=== PATIENT | male | born 1965 | race American Indian/Alaskan Native ===

== ENCOUNTER 2016-05-15 17:38 | Emergency (ER) | payer SELFPAY ==
[2016-05-15 18:26] VITALS: BP 138/86
== END 2016-05-15 20:00 | disposition left against medical advice (07) ==
LOC: ED 17:38
DX: M54.5 Low back pain (principal); R10.30 Lower abdominal pain, unspecified; Z53.21 Procedure and treatment not carried out due to patient leaving prior to being seen by health care provider

== ENCOUNTER 2016-05-17 18:41 | Emergency (ER) | payer SELFPAY ==
[2016-05-17 21:39] LABS: Bilirubin,Urine Negative (Negative); Blood,Urine Negative (Negative); Ketones,Urine Trace mg/dL (Negative); Leukocyte Esterase,Urine Negative (Negative); Nitrite,Urine Negative (Negative); Protein,Urine <15 mg/dL mg/dL (Negative); RBC,Urine < 1.0 /HPF (0.0-6.0); Urobilinogen,Urine < 2.0 mg/dL (<2.0)
[2016-05-17 21:40] LABS: Mucus,Urine Few /HPF
[2016-05-17 21:52] LABS: Basophils % (Auto) 0.5 % (0.0-1.8); Eosinophils % (Auto) 1.7 % (0.0-4.3); Hematocrit 39.2 % (35.5-45.6); Hemoglobin 12.8 gm/dl (11.8-15.2); Mean Corpuscular HGB Conc 33 % (32-34); Mean Corpuscular Hemoglobin 27 pg (28-32); Mean Corpuscular Volume 83 fl (84-94); Platelet Count 305 K/mm3 (140-440); Red Blood Count 4.71 M/mm3 (3.65-5.03); Red Cell Distribution Width 13.8 % (13.2-15.2); White Blood Count 7.9 K/mm3 (4.5-11.0)
[2016-05-17 22:06] LABS: Alanine Aminotransferase 17 units/L (7-56); Albumin 2.9 g/dL (3.9-5); Albumin/Globulin Ratio 1.2 %; Alkaline Phosphatase 56 units/L (35-129); Anion Gap 18 mmol/L; BUN/Creatinine Ratio 11.11; Bilirubin,Total 0.2 mg/dL (0.1-1.2); Blood Urea Nitrogen 10 mg/dL (9-20); Calcium 8.3 mg/dL (8.4-10.2); Carbon Dioxide 21 mmol/L (22-30); Chloride 99.6 mmol/L (98-107); Glucose 105 mg/dL (75-100); Lipase 35 units/L (13-60); Potassium 4.2 mmol/L (3.6-5.0); Sodium 134 mmol/L (137-145); Total Protein 5.3 g/dL (6.3-8.2)
[2016-05-18] MEDS ORDERED: ZOFRAN IV ONE (00:39)
[2016-05-18] MEDS ORDERED: ALUM-MAG HYDROX-SIMETH 200-200-20MG/5ML PO ONE (00:39)
[2016-05-18] MEDS ORDERED: LIDOCAINE VISCOUS 2% PO ONE (00:39)
[2016-05-18] MEDS ORDERED: NACL 0.9% 1000 ML 1,000 ML IV ONE (00:39)
[2016-05-18] MEDS ORDERED: MORPHINE IV ONE (00:39)
[2016-05-18] MEDS ORDERED: PEPCID IV ONE (00:39)
[2016-05-18] MEDS ORDERED: NACL ONE (01:13)
--- NOTE | 2016-05-18 01:19 | Emergency Department Report ---
ED Abdominal Pain HPI - General Chief Complaint: Chest Pain Stated Complaint: CHEST PAIN/LWR ABD PAIN/LWR BACK PAIN Time Seen by Provider: 05/18/16 00:24 Source: patient Mode of arrival: Ambulatory Limitations: No Limitations - History of Present Illness Initial Comments: 50-year-old male with a past medical history of intermittent abdominal pain presents to the hospital complains of abdominal chest pain. Symptoms ongoing for 2 months but worse for the last 3 days. Patient complains of pain in his chest with swallowing and he feels like he can feel the food going down his esophagus into his stomach area. Patient states he has constant lower abdominal pain radiating to the lower back described as a hot throbbing feeling. Pain rated 4/10 in intensity. There is occasional associated burning and pressure sensation in his upper abdomen and chest as well. Positive nausea with intermittent vomiting throughout the 2 months. Patient has intermittent blood in his stool as well. He denies melena, hematemesis, or fever. Patient is taking a lot of NSAIDs for pain relief. Previous medical record was reviewed patient was here May 15 but left prior to evaluation. Severity scale (0 -10): 4 - Related Data Previous Rx's Medication Instructions Recorded Last Taken Type Mag Hydrox/Al Hydrox/Simeth 20 ml PO QID PRN #1 bottle 05/18/16 Unknown Rx [Maalox Advanced Suspension] Omeprazole Magnesium [PriLOSEC Otc] 20 mg PO QDAY #30 tablet. 05/18/16 Unknown Rx Ondansetron [Zofran Odt] 4 mg PO Q8HR PRN #20 tab.rapdis 05/18/16 Unknown Rx traMADol [Ultram 50 MG tab] 50 mg PO Q6HR PRN #30 tablet 05/18/16 Unknown Rx Allergies Allergy/AdvReac Type Severity Reaction Status Date / Time No Known Allergies Allergy Verified 05/15/16 18:26 ED Review of Systems ROS: Stated complaint: CHEST PAIN/LWR ABD PAIN/LWR BACK PAIN Other details as noted in HPI Comment: All other systems reviewed and negative Other: Constitutional: No fevers chills Eyes: No eye pain visual changes ENT: No ear pain or throat pain Neck: Denies pain Respiratory: Denies cough wheezing shortness of breath Cardiovascular: Denies palpitations, syncope GI: As per HPI : Denies dysuria, urinary frequency, or urgency Musculoskeletal: Denies back pain, joint swelling Skin: Denies rash, lesions, erythema Neurologic: Denies headache, numbness, weakness Psychiatric: Denies suicidal ideation, hallucinations ED Past Medical Hx - Past Medical History Previous Medical History?: Yes Additional medical history: Gastritis - Surgical History Past Surgical History?: No - Social History Smoking Status: Unknown if ever smoked Substance Use Type: None - Medications Home Medications: Home Medications Medication Instructions Recorded Confirmed Last Taken Type Mag Hydrox/Al Hydrox/Simeth 20 ml PO QID PRN #1 bottle 05/18/16 Unknown Rx [Maalox Advanced Suspension] Omeprazole Magnesium [PriLOSEC Otc] 20 mg PO QDAY #30 tablet.dr 05/18/16 Unknown Rx Ondansetron [Zofran Odt] 4 mg PO Q8HR PRN #20 tab.rapdis 05/18/16 Unknown Rx traMADol [Ultram 50 MG tab] 50 mg PO Q6HR PRN #30 tablet 05/18/16 Unknown Rx ED Physical Exam - General Limitations: No Limitations - Other Other exam information: General: No limitations, patient is alert in no acute distress Head exam: Atraumatic, normocephalic Eyes exam: Normal appearance, nonicteric sclera ENT: Moist mucous membrane, normal oropharynx Neck exam: Normal inspection, full range of motionr Respiratory exam: Clear to auscultation bilateral, no wheezes, rales, crackles Cardiovascular: Normal rate and rhythm, normal heart sounds Abdomen: Soft, nondistended, epigastric, right upper quadrant, and right lower quadrant tenderness, with normal bowel sounds, no rebound, or guarding Extremity: Full range of motion normal inspection no deformity Back: Normal Inspection, full range of motion, no tenderness Neurologic: Alert, oriented x3, cranial nerves intact, no motor or sensory deficit Psychiatric: normal affect, normal mood Skin: Warm, dry, intact ED Course Vital Signs 05/17/16 05/17/16 05/17/16 19:30 23:14 23:31 Temperature 98.9 F Pulse Rate 102 H 93 H 86 Respiratory 18 14 18 Rate Blood Pressure 106/62 Blood Pressure 115/75 [Right] O2 Sat by Pulse 97 98 Oximetry 05/18/16 05/18/16 00:00 00:30 Temperature Pulse Rate 84 82 Respiratory 18 18 Rate Blood Pressure 103/55 103/55 Blood Pressure [Right] O2 Sat by Pulse 94 97 Oximetry - Reevaluation(s) Reevaluation #1: 05/18/16 01:19 Morphine, Zofran, Pepcid, Maalox, viscous lidocaine, and normal saline Reevaluation #2: 05/18/16 02:31 pain improved with Ed treatment. ED Medical Decision Making - Lab Data Result diagrams: 05/17/16 21:17 05/17/16 21:17 Lab Results 05/17/16 05/17/16 05/17/16 Range/Units 19:35 21:17 21:17 WBC 7.9 (4.5-11.0) K/mm3 RBC 4.71 (3.65-5.03) M/mm3 Hgb 12.8 (11.8-15.2) gm/dl Hct 39.2 (35.5-45.6) % MCV 83 L (84-94) fl MCH 27 L (28-32) pg MCHC 33 (32-34) % RDW 13.8 (13.2-15.2) % Plt Count 305 (140-440) K/mm3 Lymph % (Auto) 24.8 (13.4-35.0) % [place] % (Auto) 5.5 (0.0-7.3) % Eos % (Auto) 1.7 (0.0-4.3) % Baso % (Auto) 0.5 (0.0-1.8) % Lymph # 2.0 (1.2-5.4) K/mm3 [place] # 0.4 (0.0-0.8) K/mm3 Eos # 0.1 (0.0-0.4) K/mm3 Baso # 0.0 (0.0-0.1) K/mm3 Seg Neutrophils % 67.5 (40.0-70.0) % Seg Neutrophils # 5.3 (1.8-7.7) K/mm3 Sodium (137-145) mmol/L Potassium (3.6-5.0) mmol/L Chloride (98-107) mmol/L Carbon Dioxide (22-30) mmol/L Anion Gap mmol/L BUN (9-20) mg/dL Creatinine (0.8-1.5) mg/dL Estimated GFR ml/min BUN/Creatinine Ratio % Glucose (75-100) mg/dL Calcium (8.4-10.2) mg/dL Total Bilirubin (0.1-1.2) mg/dL AST (5-40) units/L ALT (7-56) units/L Alkaline Phosphatase (35-129) units/L Troponin T < 0.010 (0.00-0.029) ng/mL Total Protein (6.3-8.2) g/dL Albumin (3.9-5) g/dL Albumin/Globulin Ratio % Lipase (13-60) units/L Urine Color Yellow (Yellow) Urine Turbidity Clear (Clear) Urine pH 5.0 (5.0-7.0) Ur Specific [place] 1.013 (1.003-1.030) Urine Protein <15 mg/dl (Negative) mg/dL Urine Glucose (UA) Negative (Negative) mg/dL Urine Ketones Trace (Negative) mg/dL Urine Blood Negative (Negative) Urine Nitrite Negative (Negative) Urine Bilirubin Negative (Negative) Urine Urobilinogen < 2.0 (<2.0) mg/dL Ur Leukocyte Esterase Negative (Negative) Urine WBC (Auto) 1.0 (0.0-6.0) /HPF Urine RBC (Auto) < 1.0 (0.0-6.0) /HPF Urine Mucus Few /HPF 05/17/16 05/17/16 Range/Units 21:17 23:25 WBC (4.5-11.0) K/mm3 RBC (3.65-5.03) M/mm3 Hgb (11.8-15.2) gm/dl Hct (35.5-45.6) % MCV (84-94) fl MCH (28-32) pg MCHC (32-34) % RDW (13.2-15.2) % Plt Count (140-440) K/mm3 Lymph % (Auto) (13.4-35.0) % [place] % (Auto) (0.0-7.3) % Eos % (Auto) (0.0-4.3) % Baso % (Auto) (0.0-1.8) % Lymph # (1.2-5.4) K/mm3 [place] # (0.0-0.8) K/mm3 Eos # (0.0-0.4) K/mm3 Baso # (0.0-0.1) K/mm3 Seg Neutrophils % (40.0-70.0) % Seg Neutrophils # (1.8-7.7) K/mm3 Sodium 134 L (137-145) mmol/L Potassium 4.2 (3.6-5.0) mmol/L Chloride 99.6 (98-107) mmol/L Carbon Dioxide 21 L (22-30) mmol/L Anion Gap 18 mmol/L BUN 10 (9-20) mg/dL Creatinine 0.9 (0.8-1.5) mg/dL Estimated GFR > 60 ml/min BUN/Creatinine Ratio 11.11 % Glucose 105 H (75-100) mg/dL Calcium 8.3 L (8.4-10.2) mg/dL Total Bilirubin 0.2 (0.1-1.2) mg/dL AST 19 (5-40) units/L ALT 17 (7-56) units/L Alkaline Phosphatase 56 (35-129) units/L Troponin T < 0.010 (0.00-0.029) ng/mL Total Protein 5.3 L (6.3-8.2) g/dL Albumin 2.9 L (3.9-5) g/dL Albumin/Globulin Ratio 1.2 % Lipase 35 (13-60) units/L Urine Color (Yellow) Urine Turbidity (Clear) Urine pH (5.0-7.0) Ur Specific [place] (1.003-1.030) Urine Protein (Negative) mg/dL Urine Glucose (UA) (Negative) mg/dL Urine Ketones (Negative) mg/dL Urine Blood (Negative) Urine Nitrite (Negative) Urine Bilirubin (Negative) Urine Urobilinogen (<2.0) mg/dL Ur Leukocyte Esterase (Negative) Urine WBC (Auto) (0.0-6.0) /HPF Urine RBC (Auto) (0.0-6.0) /HPF Urine Mucus /HPF - Radiology Data Radiology results: report reviewed CT abdomen and pelvis IV contrast: 3 mm nonobstructive stone right. No obstructive uropathy. No gross inflammatory changes in the renal collecting system. No calcified gallstones or biliary dilatation. Homogeneous effacement of the liver, spleen, and pancreas. Moderate stool in the colon. Large and small bowel loops normal. Appendix normal. No inflammatory changes. 9 mm indeterminate right adrenal nodule - Medical Decision Making Labs and CT did not reveal any significant abnormality. Pain is chronic and ongoing. Guaiac-positive stool but normal H&H. Pt will be placed on PPI, nausea medication, Maalox, and instructed not to take NSAIDs or aspirin. Tramadol will be prescribed instead. GI follow-up will be encouraged for endoscopy - Differential Diagnosis gastritis, cholelithiasis, diverticulitis, appendicitis, GERD, PUD Critical Care Time: No Critical care attestation.: If time is entered above; I have spent that time in minutes in the direct care of this critically ill patient, excluding procedure time. ED Disposition Clinical Impression: Gastritis, Abdominal pain, GERD (gastroesophageal reflux disease), Right kidney stone Disposition: DISCHARGED TO HOME OR SELFCARE Is pt being admited?: No Does the pt Need Aspirin: No Condition: Stable Instructions: Gastritis (ED), Abdominal Pain (ED), Gastroesophageal Reflux Disease (ED), Kidney Stones (ED) Additional Instructions: Take the medication as prescribed. Return if symptoms worsen. Avoid taking NSAIDs and aspirin because they may cause increase stomach irritation. Prescriptions: Mag Hydrox/Al Hydrox/Simeth [Maalox Advanced Suspension] 20 ml PO QID PRN #1 bottle PRN Reason: Indigestion Omeprazole Magnesium [PriLOSEC Otc] 20 mg PO QDAY #30 tablet. Ondansetron [Zofran Odt] 4 mg PO Q8HR PRN #20 tab.rapdis PRN Reason: Nausea And Vomiting traMADol [Ultram 50 MG tab] 50 mg PO Q6HR PRN #30 tablet PRN Reason: Pain Referrals: REJI RIDLEY MD [Staff Physician] - 3-5 Days [facility] [Provider Group] - 3-5 Days Time of Disposition: 02:32
--- NOTE | 2016-05-18 01:26 | Cat Scan Report ---
FINAL REPORT EXAM: CT ABDOMEN PELVIS W CON HISTORY: ruq, rlq pain, vomiting, blood in stool COMPARISON: None available. TECHNIQUE: Contiguous axial images were obtained. Additional sagittal and coronal reformatted images were obtained. Administration of IV contrast given per institution protocol. Images submitted for interpretation. FINDINGS: Mild linear scarring or atelectasis in the lingula. Calcified granuloma right lower lobe. No calcified gallstones or biliary dilatation. Homogeneous enhancement of the liver, spleen, pancreas. Indeterminate right adrenal nodule measuring 9 x 6 millimeters. Left adrenal gland is unremarkable. No solid renal lesion. No hydronephrosis. 3 millimeter nonobstructive right renal calculus. Aorta and IVC normal in caliber. Urinary bladder and prostate gland are grossly unremarkable. No free fluid or pathologic lymphadenopathy. The appendix is normal in caliber. Moderate stool in the colon. Large and small bowel loops normal in caliber. Lumbar vertebral body heights are preserved. Mild to moderate degenerative changes of lumbar spine. Bony pelvis is grossly intact. IMPRESSION: 3 millimeter nonobstructive calculus. No obstructive uropathy. No gross inflammatory changes the renal collecting system. Moderate stool in the colon. Large and small bowel loops are normal in caliber. The appendix is normal in caliber measuring 5-6 millimeters in diameter. No adjacent fat stranding or fluid to suggest active inflammation the appendix at this time by CT. 9 millimeter indeterminate right adrenal nodule. Statistically this likely reflects an adenoma. No other gross acute findings.
[2016-05-18 02:43] VITALS: BP 121/81
== END 2016-05-18 02:45 | disposition home or self-care (01) ==
LOC: ED 18:41
DX: K29.70 Gastritis, unspecified, without bleeding (principal); K21.9 Gastro-esophageal reflux disease without esophagitis; N20.0 Calculus of kidney
CPT/HCPCS: 36415; 74177; 80053; 81001; 82271; 83690; 84484; 85025; 93005; 93010; 96361; 96374; 96375; 99285; J2270; J2405; J7030; Q9967

== ENCOUNTER 2016-07-01 20:13 | Emergency (ER) | payer SELFPAY ==
[2016-07-01 20:57] LABS: Basophils % (Auto) 0.7 % (0.0-1.8); Eosinophils % (Auto) 3.7 % (0.0-4.3); Hematocrit 38.7 % (35.5-45.6); Hemoglobin 12.9 gm/dl (11.8-15.2); Mean Corpuscular HGB Conc 33 % (32-34); Mean Corpuscular Hemoglobin 27 pg (28-32); Mean Corpuscular Volume 82 fl (84-94); Platelet Count 309 K/mm3 (140-440); Red Blood Count 4.74 M/mm3 (3.65-5.03); White Blood Count 7.7 K/mm3 (4.5-11.0)
[2016-07-01 21:03] LABS: Urine Drugs of Abuse Note Disclamer
[2016-07-01 21:12] LABS: Alanine Aminotransferase 16 units/L (7-56); Albumin 3.7 g/dL (3.9-5); Albumin/Globulin Ratio 1.9 %; Anion Gap 20 mmol/L; Blood Urea Nitrogen 11 mg/dL (9-20); Calcium 8.8 mg/dL (8.4-10.2); Carbon Dioxide 22 mmol/L (22-30); Chloride 102.3 mmol/L (98-107); Glucose 97 mg/dL (75-100); Lipase 117 units/L (13-60); Potassium 4.1 mmol/L (3.6-5.0); Sodium 140 mmol/L (137-145); Total Protein 5.7 g/dL (6.3-8.2)
[2016-07-01 21:18] LABS: Bilirubin,Urine NEG (Negative); Blood,Urine NEG (Negative); Ketones,Urine TR mg/dL (Negative); Leukocyte Esterase,Urine NEG (Negative); Mucus,Urine FEW /HPF; Nitrite,Urine NEG (Negative); Urobilinogen,Urine < 2.0 mg/dL (<2.0)
[2016-07-01 21:32] LABS: Alkaline Phosphatase 69 units/L (35-129)
[2016-07-02] MEDS ORDERED: PERCOCET 5/325 PO ONE (00:28)
[2016-07-02] MEDS ORDERED: ALUM-MAG HYDROX-SIMETH 200-200-20MG/5ML PO ONE (00:29)
[2016-07-02] MEDS ORDERED: LIDOCAINE VISCOUS 2% PO ONE (00:29)
--- NOTE | 2016-07-02 00:30 | Emergency Department Report ---
ED N/V/D HPI - General Chief complaint: Abdominal Pain Stated complaint: CHEST PAIN/LEG TINGLING Time Seen by Provider: 07/02/16 00:15 Source: patient, family Mode of arrival: Ambulatory Limitations: No Limitations - History of Present Illness Initial comments: This is a gentleman who describes several day history of epigastric discomfort. He has been told in the past that he could have peptic ulcer disease. Last time he was here he is actually given a prescription for omeprazole as well as several other medications he did not fill the prescription for omeprazole due to cost. He states he tries to relatively careful with his diet. He does drink alcohol however and he does use aspirin in excess. He also endorses some burning sensation from his stomach up into his chest. Patient is also reporting difficulty with urination. He states difficulty initiating a stream and emptying his bladder. In addition he states when he is urinating he feels discomfort extending to his testicles. He denies any testicular enlargement. He denies any testicular tenderness to palpation. Location: epigastric Quality: other (burning) Improves with: none - Related Data Previous Rx's Medication Instructions Recorded Last Taken Type Mag Hydrox/Al Hydrox/Simeth 20 ml PO QID PRN #1 bottle 05/18/16 Unknown Rx [Maalox Advanced Suspension] Omeprazole Magnesium [PriLOSEC Otc] 20 mg PO QDAY #30 tablet. 05/18/16 Unknown Rx Ondansetron [Zofran Odt] 4 mg PO Q8HR PRN #20 tab.rapdis 05/18/16 Unknown Rx traMADol [Ultram 50 MG tab] 50 mg PO Q6HR PRN #30 tablet 05/18/16 Unknown Rx Omeprazole Magnesium [PriLOSEC Otc] 20 mg PO QDAY #30 tablet. 07/02/16 Unknown Rx Tamsulosin [Flomax] 0.4 mg PO QDAY #30 cap 07/02/16 Unknown Rx Allergies Allergy/AdvReac Type Severity Reaction Status Date / Time No Known Allergies Allergy Verified 05/15/16 18:26 ED Review of Systems ROS: Stated complaint: CHEST PAIN/LEG TINGLING Other details as noted in HPI Comment: All other systems reviewed and negative Constitutional: denies: chills, fever Eyes: denies: eye pain, eye discharge, vision change ENT: denies: ear pain, throat pain Respiratory: denies: cough, shortness of breath, wheezing Cardiovascular: denies: chest pain, palpitations Endocrine: no symptoms reported Gastrointestinal: abdominal pain, nausea. denies: diarrhea Genitourinary: dysuria. denies: urgency Musculoskeletal: denies: back pain, joint swelling, arthralgia Skin: denies: rash, lesions Neurological: denies: headache, weakness, paresthesias Psychiatric: denies: anxiety, depression Hematological/Lymphatic: denies: easy bleeding, easy bruising ED Past Medical Hx - Past Medical History Previous Medical History?: No Additional medical history: Gastritis - Surgical History Past Surgical History?: No - Social History Smoking Status: Current Every Day Smoker Substance Use Type: Alcohol - Medications Home Medications: Home Medications Medication Instructions Recorded Confirmed Last Taken Type Mag Hydrox/Al Hydrox/Simeth 20 ml PO QID PRN #1 bottle 05/18/16 Unknown Rx [Maalox Advanced Suspension] Omeprazole Magnesium [PriLOSEC Otc] 20 mg PO QDAY #30 tablet. 05/18/16 Unknown Rx Ondansetron [Zofran Odt] 4 mg PO Q8HR PRN #20 tab.rapdis 05/18/16 Unknown Rx traMADol [Ultram 50 MG tab] 50 mg PO Q6HR PRN #30 tablet 05/18/16 Unknown Rx Omeprazole Magnesium [PriLOSEC Otc] 20 mg PO QDAY #30 tablet. 07/02/16 Unknown Rx Tamsulosin [Flomax] 0.4 mg PO QDAY #30 cap 07/02/16 Unknown Rx ED Physical Exam - General Limitations: No Limitations General appearance: alert, in no apparent distress - Head Head exam: Present: atraumatic, normocephalic - Eye Eye exam: Present: normal appearance, EOMI. Absent: scleral icterus - ENT ENT exam: Present: normal exam, normal orophraynx, mucous membranes moist - Neck Neck exam: Present: normal inspection - Respiratory Respiratory exam: Present: normal lung sounds bilaterally. Absent: respiratory distress, wheezes, rales - Cardiovascular Cardiovascular Exam: Present: regular rate, normal rhythm. Absent: systolic murmur, diastolic murmur, rubs, gallop - GI/Abdominal GI/Abdominal exam: Present: soft, tenderness (mild epigastric), normal bowel sounds - Rectal Rectal exam: Present: deferred - Extremities Exam Extremities exam: Present: normal inspection. Absent: pedal edema, calf tenderness - Back Exam Back exam: Present: normal inspection. Absent: CVA tenderness (R), CVA tenderness (L), vertebral tenderness - Neurological Exam Neurological exam: Present: alert, oriented X3, normal gait - Psychiatric Psychiatric exam: Present: normal affect, normal mood - Skin Skin exam: Present: warm, dry, intact, normal color. Absent: rash ED Course Vital Signs 07/01/16 20:24 Temperature 98.2 F Pulse Rate 97 H Blood Pressure 125/85 O2 Sat by Pulse 96 Oximetry - Reevaluation(s) Reevaluation #1: 07/02/16 05:41 Labs are noted here. Urinalysis is unremarkable. Labs in general regarding blood tests are unremarkable as well. My suspicion is the patient's discomfort is related to his stomach. I suspect dyspepsia in the etiology likely peptic ulcer disease. He has been taking Zantac intermittently at home. I feel this is inadequate. I will start him on omeprazole. He was given good Rx coupon as well to help facilitate him getting the medication. It is strictly cautioned regarding alcohol and NSAID usage. In regards to his dysuria, there is nothing the urine to indicate concern for infectious component. I did question the patient specifically indirectly regarding possible STDs. He has no suspicion of this. I suspect there is a component of BPH given his age and male gender. I did encourage follow-up with his doctor for continued care and consideration for PSA as well as prostate examination. In the meantime I will trial him on tamsulosin as well. His abdominal examination is very benign otherwise. I do not suspect surgical etiology. Safe for home 07/02/16 05:44 ED Medical Decision Making - Lab Data Result diagrams: 07/01/16 20:36 07/01/16 20:36 Critical care attestation.: If time is entered above; I have spent that time in minutes in the direct care of this critically ill patient, excluding procedure time. ED Disposition Clinical Impression: Dysuria, Peptic ulcer disease Abdominal pain Qualifiers: Abdominal location: epigastric Qualified Code(s): R10.13 - Epigastric pain Disposition: DISCHARGED TO HOME OR SELFCARE Is pt being admited?: No Does the pt Need Aspirin: No Condition: Stable Instructions: Peptic Ulcer (ED), Benign Prostatic Hypertrophy (ED) Additional Instructions: No aspirin, ibuprofen, or Aleve for your pains. Take Tylenol as needed for pain. He did very bland diet. Follow with the primary doctor regarding your general health needs. Consider follow-up with GI for endoscopy. Prescriptions: Omeprazole Magnesium [PriLOSEC Otc] 20 mg PO QDAY #30 tablet. Tamsulosin [Flomax] 0.4 mg PO QDAY #30 cap Referrals: [facility] [Provider Group] - 3-5 Days [facility] [Provider Group] - 3-5 Days [facility] [Provider Group] - 3-5 Days Time of Disposition: 00:36
[2016-07-02 01:20] VITALS: BP 137/82
== END 2016-07-02 01:18 | disposition home or self-care (01) ==
LOC: ED 20:13
DX: K27.9 Peptic ulcer, site unspecified, unspecified as acute or chronic, without hemorrhage or perforation (principal); R30.0 Dysuria; F17.200 Nicotine dependence, unspecified, uncomplicated
CPT/HCPCS: 36415; 80053; 80307; 81001; 83690; 85025; 93005; 93010; 99284

== ENCOUNTER 2017-01-30 14:07 | Emergency (ER) | payer OTHER ==
[2017-01-30 14:48] VITALS: BP 121/85
--- NOTE | 2017-01-30 19:08 | Emergency Department Report ---
ED General Adult HPI - General Chief complaint: Medical Clearance Stated complaint: MEDICATION REFILL Time Seen by Provider: 01/30/17 19:06 Source: patient Mode of arrival: Ambulatory Limitations: No Limitations - History of Present Illness Initial comments: Patient requesting a medication refill on [facility] Complaint: medication refill Onset/Timin -: days(s) Radiation: non-radiation Severity scale (0 -10): 0 Quality: other (none) Consistency: other (none) Improves with: medication Worsens with: none Associated Symptoms: denies other symptoms. denies: confusion, chest pain, cough, diaphoresis, fever/chills, headaches, loss of appetite, malaise, nausea/ vomiting, rash, seizure, shortness of breath, syncope, weakness Treatments Prior to Arrival: none - Related Data Previous Rx's Medication Instructions Recorded Last Taken Type Mag Hydrox/Aluminum Hyd/Simeth 20 ml PO QID PRN #1 bottle 05/18/16 Unknown Rx [Maalox Advanced Suspension] Omeprazole Magnesium [PriLOSEC Otc] 20 mg PO QDAY #30 tablet. 05/18/16 Unknown Rx Ondansetron [Zofran Odt] 4 mg PO Q8HR PRN #20 tab.rapdis 05/18/16 Unknown Rx traMADol [Ultram 50 MG tab] 50 mg PO Q6HR PRN #30 tablet 05/18/16 Unknown Rx Omeprazole Magnesium [PriLOSEC Otc] 20 mg PO QDAY #30 tablet. 07/02/16 Unknown Rx Tamsulosin [Flomax] 0.4 mg PO QDAY #30 cap 01/30/17 Unknown Rx Allergies Allergy/AdvReac Type Severity Reaction Status Date / Time No Known Allergies Allergy Verified 05/15/16 18:26 ED Review of Systems ROS: Stated complaint: MEDICATION REFILL Other details as noted in HPI Comment: All other systems reviewed and negative Constitutional: no symptoms reported. denies: chills, diaphoresis, fever, malaise, weakness Respiratory: denies: cough, orthopnea, shortness of breath, SOB with exertion, SOB at rest, stridor, wheezing Cardiovascular: denies: chest pain, palpitations, dyspnea on exertion, orthopnea , edema, syncope, paroxysmal nocturnal dyspnea Gastrointestinal: denies: abdominal pain, nausea, vomiting, diarrhea, constipation Genitourinary: denies: urgency, dysuria, frequency, hematuria, discharge, testicular pain, testicular mass Musculoskeletal: denies: back pain, joint swelling, arthralgia Skin: denies: rash, lesions, change in color, change in hair/nails, pruritus Neurological: denies: headache, weakness, numbness, paresthesias, confusion Psychiatric: denies: anxiety, depression Hematological/Lymphatic: denies: easy bleeding, easy bruising, swollen glands ED Past Medical Hx - Past Medical History Additional medical history: Gastritis,enlarged prostate - Social History Smoking Status: Unknown if ever smoked Substance Use Type: None - Medications Home Medications: Home Medications Medication Instructions Recorded Confirmed Last Taken Type Mag Hydrox/Aluminum Hyd/Simeth 20 ml PO QID PRN #1 bottle 05/18/16 Unknown Rx [Maalox Advanced Suspension] Omeprazole Magnesium [PriLOSEC Otc] 20 mg PO QDAY #30 tablet. 05/18/16 Unknown Rx Ondansetron [Zofran Odt] 4 mg PO Q8HR PRN #20 tab.rapdis 05/18/16 Unknown Rx traMADol [Ultram 50 MG tab] 50 mg PO Q6HR PRN #30 tablet 05/18/16 Unknown Rx Omeprazole Magnesium [PriLOSEC Otc] 20 mg PO QDAY #30 tablet. 07/02/16 Unknown Rx Tamsulosin [Flomax] 0.4 mg PO QDAY #30 cap 01/30/17 Unknown Rx ED Physical Exam - General Limitations: No Limitations General appearance: alert, in no apparent distress - Head Head exam: Present: atraumatic, normal inspection - Eye Eye exam: Present: normal appearance - Neck Neck exam: Present: normal inspection, full ROM. Absent: tenderness, meningismus, lymphadenopathy, thyromegaly - Respiratory Respiratory exam: Present: normal lung sounds bilaterally. Absent: respiratory distress, wheezes, rales, rhonchi, stridor, chest wall tenderness, accessory muscle use, decreased breath sounds, prolonged expiratory - Cardiovascular Cardiovascular Exam: Present: normal rhythm, normal heart sounds. Absent: systolic murmur, diastolic murmur, rubs, gallop - GI/Abdominal GI/Abdominal exam: Present: soft, normal bowel sounds. Absent: distended, tenderness, guarding, rebound, rigid - Extremities Exam Extremities exam: Present: normal inspection, full ROM, normal capillary refill. Absent: tenderness, pedal edema, joint swelling - Back Exam Back exam: Present: normal inspection, full ROM. Absent: tenderness, CVA tenderness (R), CVA tenderness (L), muscle spasm, paraspinal tenderness, vertebral tenderness - Neurological Exam Neurological exam: Present: alert, oriented X3, CN II-XII intact, normal gait, reflexes normal. Absent: motor sensory deficit - Psychiatric Psychiatric exam: Present: normal affect, normal mood. Absent: depressed, agitated - Skin Skin exam: Present: warm, dry, intact, normal color. Absent: rash ED Course Vital Signs 01/30/17 14:46 Temperature 99.1 F Pulse Rate 104 H Respiratory 18 Rate Blood Pressure 121/85 O2 Sat by Pulse 100 Oximetry ED Medical Decision Making - Lab Data Vital Signs 01/30/17 14:46 Temperature 99.1 F Pulse Rate 104 H Respiratory 18 Rate Blood Pressure 121/85 O2 Sat by Pulse 100 Oximetry - Medical Decision Making During the course of ED, all other systems are unremarkable except for documentation in HPI - Differential Diagnosis Medication Refill Critical care attestation.: If time is entered above; I have spent that time in minutes in the direct care of this critically ill patient, excluding procedure time. ED Disposition Clinical Impression: Medication refill Disposition: DC-01 TO HOME OR SELFCARE Is pt being admited?: No Does the pt Need Aspirin: No Condition: Stable Additional Instructions: Take medication as directed. Follow up with the selective referral given at discharge Prescriptions: Tamsulosin [Flomax] 0.4 mg PO QDAY #30 cap Referrals: [facility] [Outside] - 3-5 Days [facility] [Outside] - 3-5 Days Time of Disposition: 19:07
== END 2017-01-30 19:16 | disposition home or self-care (01) ==
LOC: ED 14:07
DX: Z76.0 Encounter for issue of repeat prescription (principal)
CPT/HCPCS: 99282

== ENCOUNTER 2017-07-24 14:22 | Emergency (ER) | payer SELFPAY | END 2017-07-24 14:45 | disposition left against medical advice (07) | LOC: ED 14:22 | DX: I10 Essential (primary) hypertension (principal); Z53.21 Procedure and treatment not carried out due to patient leaving prior to being seen by health care provider ==

== ENCOUNTER 2017-09-24 11:57 | Emergency (ER) | payer OTHER ==
[2017-09-24 12:12] VITALS: BP 134/97
--- NOTE | 2017-09-24 13:57 | Emergency Department Report ---
ED Abdominal Pain HPI - General Chief Complaint: Abdominal Pain Stated Complaint: GASTROLL REFLUX Time Seen by Provider: 09/24/17 13:47 Source: patient Mode of arrival: Ambulatory Limitations: No Limitations - History of Present Illness Initial Comments: Patient is a 52-year-old black male who is presenting with GERD type symptoms. Patient says some epigastric discomfort that is a burning sensation. Patient states that this morning had one episode of nausea vomiting after taking some Pepto-Bismol. Patient to take an [id number] acid reducing medications without relief. Patient states that symptoms have been present for approximately a year but sometimes he states is worse than other times. Patient has not seen a marriage counselor for these issues. - Related Data Previous Rx's Medication Instructions Recorded Last Taken Type Mag Hydrox/Aluminum Hyd/Simeth 20 ml PO QID PRN #1 bottle 05/18/16 Unknown Rx [Maalox Advanced Suspension] Omeprazole Magnesium [PriLOSEC Otc] 20 mg PO QDAY #30 tablet. 05/18/16 Unknown Rx traMADol [Ultram 50 MG tab] 50 mg PO Q6HR PRN #30 tablet 05/18/16 Unknown Rx Tamsulosin [Flomax] 0.4 mg PO QDAY #30 cap 01/30/17 Unknown Rx Dicyclomine [Bentyl] 20 mg PO QID #15 tablet 09/24/17 Unknown Rx Omeprazole Magnesium [PriLOSEC Otc] 40 mg PO QDAY #30 tablet. 09/24/17 Unknown Rx Ondansetron [Zofran ODT TAB] 4 mg PO Q8HR PRN #14 tab.rapdis 09/24/17 Unknown Rx Allergies Allergy/AdvReac Type Severity Reaction Status Date / Time No Known Allergies Allergy Verified 05/15/16 18:26 ED Review of Systems ROS: Stated complaint: GASTROLL REFLUX Other details as noted in HPI Comment: All other systems reviewed and negative ED Past Medical Hx - Past Medical History Hx GERD: Yes Additional medical history: Gastritis,enlarged prostate - Social History Smoking Status: Current Every Day Smoker Substance Use Type: Alcohol - Medications Home Medications: Home Medications Medication Instructions Recorded Confirmed Last Taken Type Mag Hydrox/Aluminum Hyd/Simeth 20 ml PO QID PRN #1 bottle 05/18/16 Unknown Rx [Maalox Advanced Suspension] Omeprazole Magnesium [PriLOSEC Otc] 20 mg PO QDAY #30 tablet. 05/18/16 Unknown Rx traMADol [Ultram 50 MG tab] 50 mg PO Q6HR PRN #30 tablet 05/18/16 Unknown Rx Tamsulosin [Flomax] 0.4 mg PO QDAY #30 cap 01/30/17 Unknown Rx Dicyclomine [Bentyl] 20 mg PO QID #15 tablet 09/24/17 Unknown Rx Omeprazole Magnesium [PriLOSEC Otc] 40 mg PO QDAY #30 tablet. 09/24/17 Unknown Rx Ondansetron [Zofran ODT TAB] 4 mg PO Q8HR PRN #14 tab.rapdis 09/24/17 Unknown Rx ED Physical Exam - General Limitations: No Limitations General appearance: alert, in no apparent distress - Head Head exam: Present: atraumatic, normocephalic - Eye Eye exam: Present: normal appearance - ENT ENT exam: Present: mucous membranes moist - Neck Neck exam: Present: normal inspection - Respiratory Respiratory exam: Present: normal lung sounds bilaterally. Absent: respiratory distress, wheezes, rales - Cardiovascular Cardiovascular Exam: Present: regular rate, normal rhythm. Absent: systolic murmur, diastolic murmur, rubs, gallop - GI/Abdominal GI/Abdominal exam: Present: soft, tenderness (EPIGASTRIC), normal bowel sounds. Absent: distended, guarding, rebound, rigid - Rectal Rectal exam: Present: deferred - Extremities Exam Extremities exam: Present: normal inspection - Back Exam Back exam: Present: normal inspection - Neurological Exam Neurological exam: Present: alert, oriented X3 - Psychiatric Psychiatric exam: Present: normal affect, normal mood - Skin Skin exam: Present: warm, dry, intact, normal color. Absent: rash ED Course Vital Signs 09/24/17 09/24/17 12:08 13:49 Temperature 97.9 F Pulse Rate 84 Respiratory 18 16 Rate Blood Pressure 134/97 O2 Sat by Pulse 100 Oximetry ED Medical Decision Making - Medical Decision Making This will be started on a PPI at this time and will be discharged Critical care attestation.: If time is entered above; I have spent that time in minutes in the direct care of this critically ill patient, excluding procedure time. ED Disposition Clinical Impression: GERD (gastroesophageal reflux disease) Qualifiers: Esophagitis presence: esophagitis presence not specified Qualified Code(s): K21.9 - Gastro-esophageal reflux disease without esophagitis Disposition: DC-01 TO HOME OR SELFCARE Is pt being admited?: No Does the pt Need Aspirin: No Condition: Stable Instructions: Gastroesophageal Reflux Disease (ED) Prescriptions: Dicyclomine [Bentyl] 20 mg PO QID #15 tablet Omeprazole Magnesium [PriLOSEC Otc] 40 mg PO QDAY #30 tablet. Ondansetron [Zofran ODT TAB] 4 mg PO Q8HR PRN #14 tab.rapdis PRN Reason: Nausea And Vomiting
== END 2017-09-24 14:36 | disposition home or self-care (01) ==
LOC: ED 11:57
DX: K21.9 Gastro-esophageal reflux disease without esophagitis (principal); F17.200 Nicotine dependence, unspecified, uncomplicated
CPT/HCPCS: 99282

== ENCOUNTER 2019-07-17 11:45 | Emergency (ER) | payer OTHER ==
[2019-07-17 11:55] VITALS: BP 129/93
--- NOTE | 2019-07-17 12:44 | Emergency Department Report ---
Chief Complaint: Abdominal Pain Stated Complaint: ABD PAIN Time Seen by Provider: 07/17/19 11:57 - HPI History of Present Illness: This is a 54-year-old female with a history of gastro-reflux disease and hyperlipidemia who presents the ED stating that he has been having her acute onset of there is reflux disease because he has been out of his medication. Patient also states that he is elevated atorvastatin and fenofibrate. Patient states he called his primary care physician and did not get an appointment time till next month. Patient states that he is out of his medication and needs it. Patient denies any abdominal pain, nausea vomiting, diarrhea, fever, chills, headache, chest pain, shortness of breath or any other symptoms. - ROS Review of Systems: As noted in HPI - Exam Vital Signs: Vital Signs 07/17/19 11:53 Temperature 98.6 F Pulse Rate 87 Respiratory 20 Rate Blood Pressure 129/93 O2 Sat by Pulse 99 Oximetry Physical Exam: GENERAL: Alert and oriented x3, no apparent distress, Normal Gait, atraumatic. HEAD: Head is normocephalic and a-traumatic. LUNGS: Symetrical with respiration, No wheezing, no rales or crackles, CTAB. HEART: S1, S2 present, regular rate and rhythm without murmur, no rubs, no gallops. Non tender to palpation ABDOMEN: No organomegaly was noted,Positive bowel sounds, soft, and non-distende d. . Nontender to palpation on all Quadrants, NO CVA tenderness. SKIN: Warm and dry, No lesions, No ulceration or induration present. MSE screening note: Focused history and physical exam performed. Due to findings the following was ordered: ED Medical Decision Making - Medical Decision Making 54-year-old male with a history of acid reflux and high cholesterol who presents for acid reflux flareup and medication refill. Patient had no other symptoms other than gas. Vital signs are normal patient is in no acute or respiratory distress. I discussed with the patient we will refill his medications to his appointment with his primary care physician in 3 to 4 weeks. Vital signs are normal he is in no acute distress medication given for acid reflux. Discussed with patient to follow-up with GI doctor as well as his primary care physician. Patient understand instructions and states to follow-up ED Disposition for MSE Clinical Impression: GERD (gastroesophageal reflux disease), Hyperlipidemia Disposition: DC-01 TO HOME OR SELFCARE Is pt being admited?: No Does the pt Need Aspirin: No Condition: Stable Instructions: Gastritis (ED), Diet for Ulcers and Gastritis (ED) Additional Instructions: Make sure to follow up with the primary care physician as discussed. Take all your medications as you've been prescribed. If you have any worsening symptoms or develop new symptoms please return to ED immediately. Prescriptions: AtorvaSTATin [Lipitor] 40 mg PO QHS #40 tab Fenofibrate Nanocrystallized [Fenofibrate] 145 mg PO DAILY #40 tablet Famotidine [Pepcid] 20 mg PO BID 30 Days #60 tablet Omeprazole Magnesium [PriLOSEC Otc] 40 mg PO QDAY #30 tablet. Referrals: PRIMARY CARE, [Primary Care Provider] - 3-5 Days [facility] [Outside] - 3-5 Days [facility] [Outside] - 3-5 Days Forms: Work/School Release Form(ED) Time of Disposition: 12:55
== END 2019-07-17 13:03 | disposition home or self-care (01) ==
LOC: ED 11:45
DX: K21.9 Gastro-esophageal reflux disease without esophagitis (principal); E78.5 Hyperlipidemia, unspecified; Z76.0 Encounter for issue of repeat prescription
CPT/HCPCS: 99282

== ENCOUNTER 2019-09-05 14:12 | Emergency (ER) | payer OTHER ==
--- NOTE | 2019-09-05 15:32 | Event Note ---
ED Screening Note ED Screening Note: substernal CP that began today has associated n/v began today states hx of GERD states he has a burning sensation hx of HLD This initial assessment/diagnostic orders/clinical plan/treatment(s) is/are subject to change based on patients health status, clinical progression and re- assessment by fellow clinical providers in the ED. Further treatment and workup at subsequent clinical providers discretion. Patient/guardian urged not to elope from the ED as their condition may be serious if not clinically assessed and managed. Initial orders include: CP protocol
[2019-09-05] MEDS ORDERED: FAMOTIDINE 20 MG TAB PO ONE (15:33)
[2019-09-05] MEDS ORDERED: LIDOCAINE VISCOUS 2% 15 ML ORAL LIQD PO ONE (15:33)
[2019-09-05] MEDS ORDERED: ALUM-MAG HYDROXIDE-SIMETHICONE 200-200-20MG/5ML ORAL LIQD 30 ML PO ONE (15:33)
[2019-09-05 15:52] LABS: Basophils # (Auto) 0.1 K/mm3 (0.0-0.1); Eosinophils % (Auto) 0.5 % (0.0-4.3); Hematocrit 41.7 % (35.5-45.6); Hemoglobin 14.1 gm/dl (11.8-15.2); Lymphocytes # (Auto) 1.6 K/mm3 (1.2-5.4); Lymphocytes % (Auto) 26.5 % (13.4-35.0); Mean Corpuscular HGB Conc 34 % (32-34); Mean Corpuscular Volume 82 fl (84-94); Monocytes # (Auto) 0.3 K/mm3 (0.0-0.8); Monocytes % (Auto) 5.2 % (0.0-7.3); Platelet Count 277 K/mm3 (140-440); Red Blood Count 5.08 M/mm3 (3.65-5.03)
--- NOTE | 2019-09-05 16:08 | XRay Report ---
CHEST 2 VIEWS INDICATION / CLINICAL INFORMATION: Cough. COMPARISON: None available. FINDINGS: SUPPORT DEVICES: None. HEART / MEDIASTINUM: No significant abnormality. LUNGS / PLEURA: No significant pulmonary or pleural abnormality. No pneumothorax. ADDITIONAL FINDINGS: No significant additional findings. IMPRESSION: 1. No acute findings. Signer Name: Mario Alberto Clark MD Signed: 09/05/2019 4:03 PM Workstation Name: [id number]
[2019-09-05 16:10] LABS: Alanine Aminotransferase 103 units/L (7-56); Albumin 4.3 g/dL (3.9-5); BUN/Creatinine Ratio 8; Blood Urea Nitrogen 8 mg/dL (9-20); Calcium 9.6 mg/dL (8.4-10.2); Hemolysis Index 10
[2019-09-05] MEDS ORDERED: ALUM-MAG HYDROXIDE-SIMETHICONE 200-200-20MG/5ML ORAL LIQD 30 ML ONE (19:13)
[2019-09-05] MEDS ORDERED: FAMOTIDINE 20 MG TAB ONE (19:13)
[2019-09-05] MEDS ORDERED: LIDOCAINE VISCOUS 2% 15 ML ORAL LIQD ONE (19:13)
[2019-09-05] MEDS ORDERED: DICYCLOMINE 20 MG TAB PO ONE (19:53)
[2019-09-05] MEDS ORDERED: diphenhydrAMINE 50 MG/ML VIAL IV ONE (19:53)
[2019-09-05] MEDS ORDERED: METOCLOPRAMIDE 10 MG/2 ML INJ IV ONE (19:53)
[2019-09-05 20:04] VITALS: BP 153/102
--- NOTE | 2019-09-05 21:16 | Emergency Department Report ---
ED N/V/D HPI - General Chief complaint: Nausea/Vomiting/Diarrhea Stated complaint: CHEST PAIN 2 DAYS Time Seen by Provider: 09/05/19 15:29 Source: patient Mode of arrival: Ambulatory Limitations: No Limitations - History of Present Illness Initial comments: Patient is a 54-year-old -I[place]ian male with a history of chronic heavy tobacco abuse, heavy alcohol abuse, GERD and alcoholic gastritis who presents to the ED with complaint of acute onset persistent intractable nausea and vomiting, epigastric pain that radiates to the right upper quadrant area and substernal pain for the last 2 days, worse in the last 12 hours. Patient states that in the last 12 hours he has not been able to keep anything down because of intractable nausea and vomiting and epigastric and right upper quadrant pain. Patient states that the pain is sharp, burning sensation that radiates to the substernal.. Patient admits to drinking beer about 12 hours ago as well. Patient denies shortness of breath, fever, chills, diarrhea, dizziness, syncope, palpitations, sore throat, headache, back pain, testicular pain, hematemesis, hematochezia, change in vision, testicular pain, hematuria or urinary frequency and urgency and dysuria. MD complaint: nausea, vomiting, abdominal pain, other (Substernal chest pain) -: Gradual, days(s) (2) Description of Vomiting: food contents Associated Abdominal Pain: Yes (Epigastric and right upper quadrant) Location: RUQ, epigastric Radiation: chest Severity: severe Pain Scale: 5 Quality: cramping, aching, constant Consistency: constant Improves with: none Worsens with: eating, vomiting Context: other (Heavy alcohol consumption) Associated Symptoms: denies other symptoms, chest pain (Substernal), loss of appetite, malaise, nausea/vomiting. denies: myalgias, cough, diaphoresis, fever/chills, headaches, rash, dysuria, shortness of breath, syncope, weakness, other - Related Data Previous Rx's Medication Instructions Recorded Last Taken Type Omeprazole Magnesium [PriLOSEC Otc] 20 mg PO QDAY #30 tablet. 05/18/16 Unknown Rx traMADoL [Ultram 50 MG tab] 50 mg PO Q6HR PRN #30 tablet 05/18/16 Unknown Rx Tamsulosin [Flomax] 0.4 mg PO QDAY #30 cap 01/30/17 Unknown Rx Dicyclomine [Bentyl] 20 mg PO BID #30 tablet 01/10/18 Unknown Rx Mag Hydrox/Aluminum Hyd/Simeth 20 ml PO QID PRN #1 bottle 01/10/18 Unknown Rx [Maalox Advanced Suspension] AtorvaSTATin [Lipitor] 40 mg PO QHS #40 tab 07/17/19 Unknown Rx Fenofibrate Nanocrystallized 145 mg PO DAILY #40 tablet 07/17/19 Unknown Rx [Fenofibrate] Dicyclomine [Bentyl] 40 mg PO Q8H 3 Days #30 tablet 09/05/19 Unknown Rx Famotidine [Pepcid] 20 mg PO BID 30 Days #60 tablet 09/05/19 Unknown Rx Omeprazole Magnesium [PriLOSEC Otc] 40 mg PO QDAY #30 tablet. 09/05/19 Unknown Rx Ondansetron [Zofran ODT TAB] 4 mg PO Q6HR PRN #20 tab.rapdis 09/05/19 Unknown Rx Allergies Allergy/AdvReac Type Severity Reaction Status Date / Time No Known Allergies Allergy Verified 03/02/18 18:57 ED Review of Systems ROS: Stated complaint: CHEST PAIN 2 DAYS Other details as noted in HPI Constitutional: denies: chills, fever Eyes: denies: eye pain, eye discharge, vision change ENT: denies: ear pain, throat pain Respiratory: denies: cough, shortness of breath, wheezing Cardiovascular: chest pain (Substernal chest pain). denies: palpitations Endocrine: no symptoms reported Gastrointestinal: abdominal pain, nausea, vomiting. denies: diarrhea Genitourinary: denies: urgency, dysuria Musculoskeletal: denies: back pain, joint swelling, arthralgia Skin: denies: rash, lesions Neurological: denies: headache, weakness, paresthesias Psychiatric: denies: anxiety, depression Hematological/Lymphatic: denies: easy bleeding, easy bruising ED Past Medical Hx - Past Medical History Previous Medical History?: Yes Hx GERD: Yes Additional medical history: Gastritis,enlarged prostate - Surgical History Past Surgical History?: No - Social History Smoking Status: Never Smoker Substance Use Type: None - Medications Home Medications: Home Medications Medication Instructions Recorded Confirmed Last Taken Type Omeprazole Magnesium [PriLOSEC Otc] 20 mg PO QDAY #30 tablet. 05/18/16 Unknown Rx traMADoL [Ultram 50 MG tab] 50 mg PO Q6HR PRN #30 tablet 05/18/16 Unknown Rx Tamsulosin [Flomax] 0.4 mg PO QDAY #30 cap 01/30/17 Unknown Rx Dicyclomine [Bentyl] 20 mg PO BID #30 tablet 01/10/18 Unknown Rx Mag Hydrox/Aluminum Hyd/Simeth 20 ml PO QID PRN #1 bottle 01/10/18 Unknown Rx [Maalox Advanced Suspension] AtorvaSTATin [Lipitor] 40 mg PO QHS #40 tab 07/17/19 Unknown Rx Fenofibrate Nanocrystallized 145 mg PO DAILY #40 tablet 07/17/19 Unknown Rx [Fenofibrate] Dicyclomine [Bentyl] 40 mg PO Q8H 3 Days #30 tablet 09/05/19 Unknown Rx Famotidine [Pepcid] 20 mg PO BID 30 Days #60 tablet 09/05/19 Unknown Rx Omeprazole Magnesium [PriLOSEC Otc] 40 mg PO QDAY #30 tablet. 09/05/19 Unknown Rx Ondansetron [Zofran ODT TAB] 4 mg PO Q6HR PRN #20 tab.rapdis 09/05/19 Unknown Rx ED Physical Exam - General Limitations: No Limitations General appearance: alert, in no apparent distress - Head Head exam: Present: atraumatic, normocephalic, normal inspection - Eye Eye exam: Present: normal appearance, PERRL, EOMI Pupils: Present: normal accommodation - ENT ENT exam: Present: normal exam, normal orophraynx, mucous membranes moist, TM's normal bilaterally, normal external ear exam - Neck Neck exam: Present: normal inspection, full ROM - Respiratory Respiratory exam: Present: normal lung sounds bilaterally. Absent: respiratory distress, wheezes, rales, rhonchi, chest wall tenderness, accessory muscle use, decreased breath sounds - Cardiovascular Cardiovascular Exam: Present: normal rhythm, tachycardia, normal heart sounds. Absent: systolic murmur, diastolic murmur, rubs, gallop - GI/Abdominal GI/Abdominal exam: Present: soft, tenderness (Palpable epigastric and right upper quadrant tenderness), normal bowel sounds. Absent: guarding, rebound, hyperactive bowel sounds, hypoactive bowel sounds, organomegaly - Extremities Exam Extremities exam: Present: normal inspection, full ROM, normal capillary refill - Back Exam Back exam: Present: normal inspection, full ROM. Absent: tenderness, CVA tenderness (R), muscle spasm, paraspinal tenderness, vertebral tenderness - Neurological Exam Neurological exam: Present: alert, oriented X3, CN II-XII intact, normal gait, reflexes normal - Psychiatric Psychiatric exam: Present: normal affect, normal mood - Skin Skin exam: Present: warm, dry, intact, normal color. Absent: rash ED Course Vital Signs 09/05/19 09/05/19 09/05/19 14:22 19:04 20:02 Temperature 99.4 F 98.2 F 98.4 F Pulse Rate 103 H 91 H 114 H Respiratory 16 16 16 Rate Blood Pressure 145/90 144/104 153/102 [Right] O2 Sat by Pulse 98 99 99 Oximetry 09/05/19 22:11 Temperature Pulse Rate 100 H Respiratory Rate Blood Pressure [Right] O2 Sat by Pulse Oximetry ED Medical Decision Making - Lab Data Result diagrams: 09/05/19 15:40 09/05/19 15:40 - Radiology Data Radiology results: report reviewed, image reviewed Findings [address] [address] Cat Scan Report Signed Patient: STEVEN DODSON MR#: [id number] : 1965 Acct:[id number] Age/Sex: 54 / M ADM Date: 09/05/19 Loc: ED Attending Dr: Ordering Physician: CHANEL COOLEY Date of Service: 09/05/19 Procedure(s): CT abdomen pelvis w con Accession Number(s): [id number] cc: CHANEL COOLEY CT abdomen pelvis w con INDICATION: Right upper quadrant/epigastric pain. TECHNIQUE: All CT scans at this location are performed using the following dose modulation technique: Automated exposure control. CONTRAST: Omnipaque 300, 100 cc IV injection. COMPARISON: 03/12/2017. CT ABDOMEN: The parenchymal organs are unremarkable in appearance other than inflammation localized to the pancreatic tail. Negative for abdominal mass, adenopathy or localized fluid collection. The bowel is not dilated or thickened. A fat-containing umbilical hernia is small. CT PELVIS: Negative for mass, fluid or inflammation. IMPRESSION: 1. Mild/moderate pancreatitis localized to the tail region. 2. Small fat-containing umbilical hernia. Signer Name: Estevan Whitehead MD Signed: 09/05/2019 9:50 PM Workstation Name: [id number] Transcribed By: CHARLI Dictated By: Estevan Whitehead MD Electronically Authenticated By: Estevan Whitehead MD Signed Date/Time: 09/05/192149 DD/ 44 TD/TT: Findings [address] [address] Ultrasound Report Signed Patient: STEVEN DODSON MR#: [id number] : 1965 Acct:[id number] Age/Sex: 54 / M ADM Date: 09/05/19 Loc: ED Attending Dr: Ordering Physician: CHANEL COOLEY Date of Service: 09/05/19 Procedure(s): US abdomen limited Accession Number(s): [id number] cc: CHANEL COOLEY ULTRASOUND ABDOMEN, LIMITED (RIGHT UPPER QUADRANT) INDICATION: Epigastric and RUQ Pain. COMPARISON: Prior CT abdomen/pelvis, 01/10/2018 FINDINGS: Pancreas: Pancreas was poorly visualized due to overlying bowel gas. Liver: Normal. Gallbladder: Normal. No evidence of gallstones or gallbladder wall thickening. Bile ducts: Normal. Common Bile Duct measures 2 mm. Free fluid: None. Additional Findings: None. IMPRESSION: 1. No sonographic abnormality of the right upper quadrant. 2. Poor visualization of the pancreas due to overlying bowel gas. Signer Name: Cheryl Tan MD Signed: 09/05/2019 9:11 PM Workstation Name: [id number] Transcribed By: Dictated By: Cheryl Tan MD Electronically Authenticated By: Cheryl Tan MD Signed Date/Time: 09/05/192110 DD/ 09 TD/TT: Findings [facility] [address] [place] [address] XRay Report Signed Patient: STEVEN DODSON MR#: [id number] : 1965 Acct:[id number] Age/Sex: 54 / M ADM Date: 09/05/19 Loc: ED Attending Dr: Ordering Physician: CHANEL TOMLIN Date of Service: 09/05/19 Procedure(s): XR chest routine 2V Accession Number(s): [id number] cc: CHANEL TOMLIN Fluoro Time In Minutes: CHEST 2 VIEWS INDICATION / CLINICAL INFORMATION: Cough. COMPARISON: None available. FINDINGS: SUPPORT DEVICES: None. HEART / MEDIASTINUM: No significant abnormality. LUNGS / PLEURA: No significant pulmonary or pleural abnormality. No pneumothorax. ADDITIONAL FINDINGS: No significant additional findings. IMPRESSION: 1. No acute findings. Signer Name: Mario Alberto Clark MD Signed: 09/05/2019 4:03 PM Workstation Name: [id number] Transcribed By: TL Dictated By: Mario Alberto Clark MD Electronically Authenticated By: Mario Alberto Clark MD Signed Date/Time: 09/05/191602 DD/ 02 TD/TT: - Medical Decision Making This is a 54-year-old -I[place]ian male with a history of chronic heavy tobacco abuse, heavy alcohol abuse, GERD and alcoholic gastritis who presents to the ED with complaint of acute onset persistent intractable nausea and vomiting, epigastric pain that radiates to the right upper quadrant area and substernal pain for the last 2 days, worse in the last 12 hours. Patient states that in the last 12 hours he has not been able to keep anything down because of intractable nausea and vomiting and epigastric and right upper quadrant pain. Patient states that the pain is sharp, burning sensation that radiates to the substernal.. Patient admits to drinking beer about 12 hours ago as well. In the ED, patient is alert and oriented x3 and is not in distress. Patient is however tachycardic in triage. Lab test results were reviewed and showed acute hyponatremia of 134 mmol/L, hyperglycemia 160 mg/dL, AST of 97, ALT of 103, and alk phos of 136. Chest x-ray shows no acute cardiopulmonary abnormalities or pneumonitis. Patient was treated with antacids, also given normal saline 1 L IV bolus x1, also treated with antiemetics and given anti-spasmodic medication as well. Abdomen pelvis CT scan with contrast shows a mild/moderate pancreatitis localized to the tail region. It also shows small fat-containing umbilical hernia. The chest x-ray shows no acute cardiopulmonary abnormalities or pneumonitis. Gallbladder ultrasound shows no sonographic abnormality of the right upper quadrant. It however shows a poor visualization of the pancreas due to overlying bowel gas. The EKG shows normal sinus rhythm with a ventricular rate of [address] or T wave abnormalities. On reevaluation, patient's pain and nausea and vomiting are well controlled medications. Patient drinking a soda in the room with no nausea or vomiting. Patient was discharged home on medications and advised to follow-up with his primary care physician in 3 to 5 days for reevaluation. Patient was advised against continued alcohol consumption given his persistent alcoholic pancreatitis. Patient was advised to return to the ED immediately if symptoms get worse. - Differential Diagnosis Gastritis; pancreatitis; GERD; Gastroenteritis; Gallstones; Dehydration Critical care attestation.: If time is entered above; I have spent that time in minutes in the direct care of this critically ill patient, excluding procedure time. ED Disposition Clinical Impression: Acute epigastric pain, Nausea and vomiting in adult patient, Transaminitis Acute alcoholic pancreatitis Qualifiers: Acute pancreatitis complication: no infection or necrosis Qualified Code(s): K85.20 - Alcohol induced acute pancreatitis without necrosis or infection GERD (gastroesophageal reflux disease) Qualifiers: Esophagitis presence: without esophagitis Qualified Code(s): K21.9 - Gastro- esophageal reflux disease without esophagitis Disposition: DC-01 TO HOME OR SELFCARE Is pt being admited?: No Does the pt Need Aspirin: No Condition: Stable Instructions: Pancreatitis (ED), Gastroesophageal Reflux Disease (ED), Gastroenteritis (ED), Acute Nausea and Vomiting (ED) Additional Instructions: Maintain a clear liquid diet for 12 to 24 hours, drink plenty of fluids and follow-up with your primary care physician in 3 to 5 days for reevaluation. Consider quitting alcohol consumption to improve on your pancreas inflammation. Return to the ED immediately if symptoms get worse. Prescriptions: Dicyclomine [Bentyl] 40 mg PO Q8H 3 Days #30 tablet Famotidine [Pepcid] 20 mg PO BID 30 Days #60 tablet Omeprazole Magnesium [PriLOSEC Otc] 40 mg PO QDAY #30 tablet. Ondansetron [Zofran ODT TAB] 4 mg PO Q6HR PRN #20 tab.rapdis PRN Reason: Nausea And Vomiting Referrals: MELISSA CHAPMAN MD [Primary Care Provider] - 3-5 Days Forms: Work/School Release Form(ED) Time of Disposition: 22:44 Print Language: BURMESE
--- NOTE | 2019-09-05 21:54 | Cat Scan Report ---
CT abdomen pelvis w con INDICATION: Right upper quadrant/epigastric pain. TECHNIQUE: All CT scans at this location are performed using the following dose modulation technique: Automated exposure control. CONTRAST: Omnipaque 300, 100 cc IV injection. COMPARISON: 03/12/2017. CT ABDOMEN: The parenchymal organs are unremarkable in appearance other than inflammation localized t o the pancreatic tail. Negative for abdominal mass, adenopathy or localized fluid collection. The bowel is not dilated or thickened. A fat-containing umbilical hernia is small. CT PELVIS: Negative for mass, fluid or inflammation. IMPRESSION: 1. Mild/moderate pancreatitis localized to the tail region. 2. Small fat-containing umbilical hernia. Signer Name: Estevan Whitehead MD Signed: 09/05/2019 9:50 PM Workstation Name: [id number]
== END 2019-09-05 22:55 | disposition home or self-care (01) ==
LOC: ED 14:12
DX: K21.9 Gastro-esophageal reflux disease without esophagitis (principal); K85.20 Alcohol induced acute pancreatitis without necrosis or infection; R74.0 Nonspecific elevation of levels of transaminase and lactic acid dehydrogenase [LDH]; Z79.899 Other long term (current) drug therapy
CPT/HCPCS: 36415; 71046; 74177; 76705; 80053; 83690; 84484; 85025; 93005; 96374; 96375; 99285; J1200; J2765; Q9967

== ENCOUNTER → 2019-10-29 20:36 | Emergency (ER) | payer OTHER | END | disposition left against medical advice (07) | LOC: ED 20:36 | DX: M54.5 Low back pain (principal); Z53.21 Procedure and treatment not carried out due to patient leaving prior to being seen by health care provider ==

== ENCOUNTER 2021-04-09 09:47 | Emergency (ER) | payer OTHER ==
[2021-04-09 10:14] VITALS: BP 136/81
--- NOTE | 2021-04-09 11:37 | Emergency Department Report ---
ED General Adult HPI - General Chief complaint: Abdominal Pain Stated complaint: GENERAL ILLNESS Source: patient Mode of arrival: Ambulatory Limitations: No Limitations - History of Present Illness Initial comments: 55 presents to the ED with a history of GERD requesting refill of medication. He states that he has appointment with [facility] on 20 April 2021. Patient denies any complaint at present time. He states that he has been out of his medicine due to change of insurance time 1. Patient denies any chest pain shortness of breath or abdominal pain at present. No acute distress noted .no ill appearance noted Associated Symptoms: denies other symptoms Treatments Prior to Arrival: none - Related Data Previous Rx's Medication Instructions Recorded Last Taken Type Omeprazole Magnesium [PriLOSEC Otc] 20 mg PO QDAY #30 tablet. 05/18/16 Unknown Rx traMADoL [Ultram 50 MG tab] 50 mg PO Q6HR PRN #30 tablet 05/18/16 Unknown Rx Tamsulosin [Flomax] 0.4 mg PO QDAY #30 cap 01/30/17 Unknown Rx Dicyclomine [Bentyl] 20 mg PO BID #30 tablet 01/10/18 Unknown Rx Mag Hydrox/Aluminum Hyd/Simeth 20 ml PO QID PRN #1 bottle 01/10/18 Unknown Rx [Maalox Advanced Suspension] AtorvaSTATin [Lipitor] 40 mg PO QHS #40 tab 07/17/19 Unknown Rx Fenofibrate Nanocrystallized 145 mg PO DAILY #40 tablet 07/17/19 Unknown Rx [Fenofibrate] Dicyclomine [Bentyl] 40 mg PO Q8H 3 Days #30 tablet 09/05/19 Unknown Rx Famotidine [Pepcid] 20 mg PO BID 30 Days #60 tablet 09/05/19 Unknown Rx Omeprazole Magnesium [PriLOSEC Otc] 40 mg PO QDAY #30 tablet. 09/05/19 Unknown Rx Ondansetron [Zofran ODT TAB] 4 mg PO Q6HR PRN #20 tab.rapdis 09/05/19 Unknown Rx Atorvastatin Calcium [Lipitor] 80 mg PO BID 60 Days #30 tab 04/09/21 Unknown Rx Fenofibrate [Tricor] 145 mg PO QDAY 30 Days #30 tablet 04/09/21 Unknown Rx Omeprazole 40 mg PO DAILY 30 Days #30 tab 04/09/21 Unknown Rx Sucralfate [Carafate] 1 gm PO Q6HR 30 Days #60 tablet 04/09/21 Unknown Rx buPROPion HCl [Zyban] 150 mg PO BID 30 Days #60 tab 04/09/21 Unknown Rx Allergies Allergy/AdvReac Type Severity Reaction Status Date / Time No Known Allergies Allergy Verified 03/02/18 18:57 ED Review of Systems ROS: Stated complaint: GENERAL ILLNESS Other details as noted in HPI Constitutional: denies: chills, fever Eyes: denies: eye pain, eye discharge, vision change ENT: denies: ear pain, throat pain Respiratory: denies: cough, shortness of breath, wheezing Cardiovascular: denies: chest pain, palpitations Endocrine: no symptoms reported Gastrointestinal: denies: abdominal pain, nausea, diarrhea Genitourinary: denies: urgency, dysuria Musculoskeletal: denies: back pain, joint swelling, arthralgia Skin: denies: rash, lesions Neurological: denies: headache, weakness, paresthesias Psychiatric: denies: anxiety, depression Hematological/Lymphatic: denies: easy bleeding, easy bruising ED Past Medical Hx - Past Medical History Previous Medical History?: Yes Hx GERD: Yes Additional medical history: Gastritis,enlarged prostate - Surgical History Past Surgical History?: No - Social History Smoking Status: Never Smoker Substance Use Type: None - Medications Home Medications: Home Medications Medication Instructions Recorded Confirmed Last Taken Type Omeprazole Magnesium [PriLOSEC Otc] 20 mg PO QDAY #30 tablet. 05/18/16 Unknown Rx traMADoL [Ultram 50 MG tab] 50 mg PO Q6HR PRN #30 tablet 05/18/16 Unknown Rx Tamsulosin [Flomax] 0.4 mg PO QDAY #30 cap 01/30/17 Unknown Rx Dicyclomine [Bentyl] 20 mg PO BID #30 tablet 01/10/18 Unknown Rx Mag Hydrox/Aluminum Hyd/Simeth 20 ml PO QID PRN #1 bottle 01/10/18 Unknown Rx [Maalox Advanced Suspension] AtorvaSTATin [Lipitor] 40 mg PO QHS #40 tab 07/17/19 Unknown Rx Fenofibrate Nanocrystallized 145 mg PO DAILY #40 tablet 07/17/19 Unknown Rx [Fenofibrate] Dicyclomine [Bentyl] 40 mg PO Q8H 3 Days #30 tablet 09/05/19 Unknown Rx Famotidine [Pepcid] 20 mg PO BID 30 Days #60 tablet 09/05/19 Unknown Rx Omeprazole Magnesium [PriLOSEC Otc] 40 mg PO QDAY #30 tablet.dr 09/05/19 Unknown Rx Ondansetron [Zofran ODT TAB] 4 mg PO Q6HR PRN #20 tab.rapdis 09/05/19 Unknown Rx Atorvastatin Calcium [Lipitor] 80 mg PO BID 60 Days #30 tab 04/09/21 Unknown Rx Fenofibrate [Tricor] 145 mg PO QDAY 30 Days #30 tablet 04/09/21 Unknown Rx Omeprazole 40 mg PO DAILY 30 Days #30 tab 04/09/21 Unknown Rx Sucralfate [Carafate] 1 gm PO Q6HR 30 Days #60 tablet 04/09/21 Unknown Rx buPROPion HCl [Zyban] 150 mg PO BID 30 Days #60 tab 04/09/21 Unknown Rx ED Physical Exam - General Limitations: No Limitations General appearance: alert, in no apparent distress - Head Head exam: Present: atraumatic, normocephalic - Eye Eye exam: Present: normal appearance - ENT ENT exam: Present: mucous membranes moist - Neck Neck exam: Present: normal inspection - Respiratory Respiratory exam: Present: normal lung sounds bilaterally. Absent: respiratory distress - Cardiovascular Cardiovascular Exam: Present: regular rate, normal rhythm. Absent: systolic murmur, diastolic murmur, rubs, gallop - GI/Abdominal GI/Abdominal exam: Present: soft, normal bowel sounds - Rectal Rectal exam: Present: deferred - Extremities Exam Extremities exam: Present: normal inspection - Back Exam Back exam: Present: normal inspection - Neurological Exam Neurological exam: Present: alert, oriented X3 - Psychiatric Psychiatric exam: Present: normal affect, normal mood - Skin Skin exam: Present: warm, dry, intact, normal color. Absent: rash ED Course Vital Signs 04/09/21 10:12 Temperature 98.2 F Pulse Rate 95 H Respiratory 20 Rate Blood Pressure 136/81 O2 Sat by Pulse 99 Oximetry ED Medical Decision Making - Medical Decision Making 55 presents to the ED with a history of GERD requesting refill of medication. He states that he has appointment with [facility] on 20 April 2021. Patient denies any complaint at present time. He states that he has been out of his medicine due to change of insurance time 1. Patient denies any chest pain shortness of breath or abdominal pain at present. No acute distress noted .no ill appearance noted Rechecked the patient is resting quietly quietly and comfortable and feeling better. I discussed the results of diagnostic study, my clinical impression and the plan for further treatment with the patient. Patient agrees with plan and discharge at this present time. All question addressed. I have given the patient instruction regarding a diagnosis ,expectation ,follow- up and return precaution. I explained to the patient that emergent condition may arise and to return to the ED for new worsen and any new persisting condition. I have explained the importance of following up with the primary care physician or referral physician listed below has instructed. The patient verbalized understanding of discharge instruction. Critical care attestation.: If time is entered above; I have spent that time in minutes in the direct care of this critically ill patient, excluding procedure time. ED Disposition Clinical Impression: GERD (gastroesophageal reflux disease) Qualifiers: Esophagitis presence: with esophagitis Esophagitis bleeding: unspecified whether hemorrhage Qualified Code(s): K21.00 - Gastro-esophageal reflux disease with esophagitis, without bleeding Hyperlipidemia Qualifiers: Hyperlipidemia type: unspecified Qualified Code(s): E78.5 - Hyperlipidemia, unspecified Disposition: 01 HOME / SELF CARE / HOMELESS Is pt being admited?: No Does the pt Need Aspirin: No Condition: Stable Instructions: Food Choices for Gastroesophageal Reflux Disease, Adult, Dyslipidemia Additional Instructions: Keep [facility] Return to ED for any worsening symptoms Take medication as prescribed Prescriptions: Sucralfate [Carafate] 1 gm PO Q6HR 30 Days #60 tablet Atorvastatin Calcium [Lipitor] 80 mg PO BID 60 Days #30 tab Omeprazole 40 mg PO DAILY 30 Days #30 tab Fenofibrate [Tricor] 145 mg PO QDAY 30 Days #30 tablet buPROPion HCl [Zyban] 150 mg PO BID 30 Days #60 tab Referrals: PRIMARY CARE,MD [Primary Care Provider] - 3-5 Days [facility] [Provider Group] - 3-5 Days Forms: Work/School Release Form(ED)
== END 2021-04-09 12:00 | disposition home or self-care (01) ==
LOC: ED 09:47
DX: K21.9 Gastro-esophageal reflux disease without esophagitis (principal); E78.5 Hyperlipidemia, unspecified
CPT/HCPCS: 99282

== ENCOUNTER 2021-11-15 08:12 | Emergency (ER) | payer OTHER ==
--- NOTE | 2021-11-15 12:16 | Emergency Department Report ---
ED Recheck HPI - General Chief Complaint: Medical Clearance Stated Complaint: STOMACH PAIN Time Seen by Provider: 11/15/21 11:49 Source: patient Mode of arrival: Ambulatory Limitations: No Limitations - History of Present Illness Initial Comments: 56 YO COMES TO ER WITH REQUEST FOR MED REFILL. NO PHYSICAL COMPLAINTS MD Complaint: medication refill request Symptoms Since Prior Visit: no new symptoms - Related Data Previous Rx's Medication Instructions Recorded Last Taken Type Omeprazole Magnesium [PriLOSEC Otc] 20 mg PO QDAY #30 tablet. 05/18/16 Unknown Rx traMADoL [Ultram 50 MG tab] 50 mg PO Q6HR PRN #30 tablet 05/18/16 Unknown Rx Tamsulosin [Flomax] 0.4 mg PO QDAY #30 cap 01/30/17 Unknown Rx Dicyclomine [Bentyl] 20 mg PO BID #30 tablet 01/10/18 Unknown Rx Mag Hydrox/Aluminum Hyd/Simeth 20 ml PO QID PRN #1 bottle 01/10/18 Unknown Rx [Maalox Advanced Suspension] Fenofibrate Nanocrystallized 145 mg PO DAILY #40 tablet 07/17/19 Unknown Rx [Fenofibrate] Dicyclomine [Bentyl] 40 mg PO Q8H 3 Days #30 tablet 09/05/19 Unknown Rx Omeprazole Magnesium [PriLOSEC Otc] 40 mg PO QDAY #30 tablet. 09/05/19 Unknown Rx Ondansetron [Zofran ODT TAB] 4 mg PO Q6HR PRN #20 tab.rapdis 09/05/19 Unknown Rx Atorvastatin Calcium [Lipitor] 80 mg PO BID 60 Days #30 tab 04/09/21 Unknown Rx Fenofibrate [Tricor] 145 mg PO QDAY 30 Days #30 tablet 04/09/21 Unknown Rx Sucralfate [Carafate] 1 gm PO Q6HR 30 Days #60 tablet 04/09/21 Unknown Rx buPROPion HCl [Zyban] 150 mg PO BID 30 Days #60 tab 04/09/21 Unknown Rx AtorvaSTATin [Lipitor] 40 mg PO QHS #40 tab 11/15/21 Unknown Rx Famotidine [Pepcid] 20 mg PO BID 30 Days #60 tablet 11/15/21 Unknown Rx Omeprazole 40 mg PO DAILY 30 Days #30 tab 11/15/21 Unknown Rx Allergies Allergy/AdvReac Type Severity Reaction Status Date / Time No Known Allergies Allergy Verified 03/02/18 18:57 ED Review of Systems ROS: Stated complaint: STOMACH PAIN Other details as noted in HPI Comment: All other systems reviewed and negative ED Past Medical Hx - Past Medical History Previous Medical History?: Yes Hx GERD: Yes Additional medical history: Gastritis,enlarged prostate - Surgical History Past Surgical History?: No - Family History Family history: no significant - Social History Smoking Status: Never Smoker Substance Use Type: None - Medications Home Medications: Home Medications Medication Instructions Recorded Confirmed Last Taken Type Omeprazole Magnesium [PriLOSEC Otc] 20 mg PO QDAY #30 tablet. 05/18/16 Unknown Rx traMADoL [Ultram 50 MG tab] 50 mg PO Q6HR PRN #30 tablet 05/18/16 Unknown Rx Tamsulosin [Flomax] 0.4 mg PO QDAY #30 cap 01/30/17 Unknown Rx Dicyclomine [Bentyl] 20 mg PO BID #30 tablet 01/10/18 Unknown Rx Mag Hydrox/Aluminum Hyd/Simeth 20 ml PO QID PRN #1 bottle 01/10/18 Unknown Rx [Maalox Advanced Suspension] Fenofibrate Nanocrystallized 145 mg PO DAILY #40 tablet 07/17/19 Unknown Rx [Fenofibrate] Dicyclomine [Bentyl] 40 mg PO Q8H 3 Days #30 tablet 09/05/19 Unknown Rx Omeprazole Magnesium [PriLOSEC Otc] 40 mg PO QDAY #30 tablet. 09/05/19 Unknown Rx Ondansetron [Zofran ODT TAB] 4 mg PO Q6HR PRN #20 tab.rapdis 09/05/19 Unknown Rx Atorvastatin Calcium [Lipitor] 80 mg PO BID 60 Days #30 tab 04/09/21 Unknown Rx Fenofibrate [Tricor] 145 mg PO QDAY 30 Days #30 tablet 04/09/21 Unknown Rx Sucralfate [Carafate] 1 gm PO Q6HR 30 Days #60 tablet 04/09/21 Unknown Rx buPROPion HCl [Zyban] 150 mg PO BID 30 Days #60 tab 04/09/21 Unknown Rx AtorvaSTATin [Lipitor] 40 mg PO QHS #40 tab 11/15/21 Unknown Rx Famotidine [Pepcid] 20 mg PO BID 30 Days #60 tablet 11/15/21 Unknown Rx Omeprazole 40 mg PO DAILY 30 Days #30 tab 11/15/21 Unknown Rx ED Physical Exam - General Limitations: No Limitations General appearance: alert, in no apparent distress - Head Head exam: Present: atraumatic, normocephalic - Eye Eye exam: Present: normal appearance - ENT ENT exam: Present: mucous membranes moist - Neck Neck exam: Present: normal inspection - Respiratory Respiratory exam: Present: normal lung sounds bilaterally. Absent: respiratory distress - Cardiovascular Cardiovascular Exam: Present: regular rate, normal rhythm. Absent: systolic murmur, diastolic murmur, rubs, gallop - GI/Abdominal GI/Abdominal exam: Present: soft, normal bowel sounds - Rectal Rectal exam: Present: deferred - Extremities Exam Extremities exam: Present: normal inspection - Back Exam Back exam: Present: normal inspection - Neurological Exam Neurological exam: Present: alert, oriented X3 - Psychiatric Psychiatric exam: Present: normal affect, normal mood - Skin Skin exam: Present: warm, dry, intact, normal color. Absent: rash ED Course Vital Signs 11/15/21 08:30 Temperature 98.1 F Pulse Rate 100 H Respiratory 12 Rate Blood Pressure 133/77 [Left] O2 Sat by Pulse 100 Oximetry ED Recheck MDM - Differential Diagnosis Prescription Refill(s) - Medical Decision Making MED REFILL NO PHYSICAL COMPLAINTS LAUREL EDUCATED PT ON APPROPRIATE USE OF PCP FOR MED REFERRALS GIVEN DC HOME WITH DC PLAN OF CARE Vital Signs (72 hours) 11/15/21 08:30 Temperature 98.1 F Pulse Rate 100 H Respiratory 12 Rate Blood Pressure 133/77 [Left] O2 Sat by Pulse 100 Oximetry Critical care attestation.: If time is entered above; I have spent that time in minutes in the direct care of this critically ill patient, excluding procedure time. ED Disposition Clinical Impression: Medication refill Disposition: 01 HOME / SELF CARE / HOMELESS Is pt being admited?: No Does the pt Need Aspirin: No Condition: Stable Additional Instructions: FOLLOW UP WITH PCP FOR MED REFILLS Prescriptions: AtorvaSTATin [Lipitor] 40 mg PO QHS #40 tab Omeprazole 40 mg PO DAILY 30 Days #30 tab Famotidine [Pepcid] 20 mg PO BID 30 Days #60 tablet Referrals: MELONIE HOYOS MD [Staff Physician] - 3-5 Days Forms: Work/School Release Form(ED) Time of Disposition: 12:17
[2021-11-15 13:05] VITALS: BP 128/60
== END 2021-11-15 13:03 | disposition home or self-care (01) ==
LOC: ED 08:12
DX: K21.9 Gastro-esophageal reflux disease without esophagitis (principal); E78.00 Pure hypercholesterolemia, unspecified; Z76.0 Encounter for issue of repeat prescription
CPT/HCPCS: 99282